=== PATIENT | female | born 1995 | race Caucasian/White ===

== ENCOUNTER 2019-04-15 22:58 | Emergency (ER) | payer OTHER, SELFPAY ==
[2019-04-15 23:00] VITALS: BP 121/68; PULSE 94; RESP 16; TEMP 36.6; O2SAT 100; BMI 21.6
[2019-04-15 23:56] LABS: Mucous, Urine 0 SEEN /hpf (<or=2+)
[2019-04-16 00:19] LABS: Color, Urine Yellow (Yellow); Glucose, Dipstick Normal (Normal); Ketone-Dipstick Negative (Negative); Leukocyte Esterase-Dipstick 500 /ul (Negative); Nitrite-Dipstick Negative (Negative); Occult Blood-Urine 250 /ul (Negative); Protein-Dipstick 100 mg/dl (Negative); Specific Gravity, Urine 1.015 (1.002-1.030); Urine Bilirubin Dipstick Negative (Negative); Urine Clarity Clear (Clear); Urine Urobilinogen Normal (Normal)
[2019-04-16 00:25] LABS: Bacteria 1+ /hpf (None Seen); Red Blood Cells-Urine 5-10 SEEN /hpf (0-5); Squamous Epithelial Cells - UA 5-10 SEEN /hpf (5-10); White Blood Cells 25-50 SEEN /hpf (0-5)
[2019-04-16 00:26] LABS: Internal QC Validated? YES +Cl - CLEAR BKGD; Pregnancy, Urine Negative Negative
--- NOTE | 2019-04-16 00:35 | ED.DCSUM_ITS ---
- ER Visit Summary Date of Service: 04/16/19 Chief Complaint: Dysuria, frequency, urgency. History of Present Illness: The patient is a 24 F who presents with urinary symptoms. These of been present for 3 days. She complains of discomfort with urination as well as frequency and urgency. Since yesterday she has also developed lower right back pain. This is worse with movement or palpation and does feel similar to prior pain with a herniated disc. No fevers nausea vomiting. Physical Examination: Afebrile vitals normal Resting comfortably no distress Heart regular rate and rhythm Lungs clear Abdomen soft, nontender, nondistended Patient has right lumbar paraspinal tenderness no midline tenderness Test Results: UA shows 500 leukocyte esterase, 25-50 WBCs and 1+ bacteria. negative. Emergency Department Course and Treatment: Urinalysis is consistent with cystitis. Her presentation is not consistent with pyelonephritis. She has no fevers nausea vomiting. Her back pain seems to be musculoskeletal in nature. It is unilateral reproducible worse with positions with a history of prior similar symptoms. She will be treated with Bactrim. She was advised on supportive care for her back pain. She understands to return for new or worsening symptoms and was instructed on specific signs and symptoms to monitor for. Treatment Plan: [] Disposition: Discharge Impression: Cystitis Back pain This note was generated with [employer] dictation software. It may contain incorrect words, spelling, and punctuation that were not noted in review of the chart prior to signing ED Disposition - Plan for ED Patient: Referrals: Doris Flaherty, RUDDY-C [Primary Care Provider] -
--- NOTE | 2019-04-16 00:37 | ED.DEP ---
ED Disposition - Plan for ED Patient: Instructions: Urinary Tract Infections in Women Prescriptions: Smz/Tmp Ds [Bactrim Ds] 1 tab PO BID #6 tab Prescription Printed Referrals: Doris Flaherty NP-C [Primary Care Provider] -
[2019-04-16 00:46] VITALS: BP 111/58; PULSE 77; RESP 18; O2SAT 100
== END 2019-04-16 00:48 | disposition home or self-care (01) ==
PROVIDERS: Emergency Provider Emergency Medicine; Family Provider Nurse Practitioner Adult Health; PCP Nurse Practitioner Adult Health
DX: N30.90 Cystitis, unspecified without hematuria (principal); M54.5 Low back pain
CPT/HCPCS: 81001; 81025; 99282

== ENCOUNTER → 2019-11-21 14:03 | Outpatient (CLI) | payer OTHER, SELFPAY ==
[2019-11-21 10:00] VITALS: BMI 21.6
[2019-11-21 16:30] LABS: Chlamydia Trachomatis by PCR Negative (Negative); Neisserai gonorrhoeae by PCR Negative (Negative); Probe Check PASS; Sample Adequacy Control PASS; Specimen Processing Control PASS
[2019-11-26 13:57] LABS: HPV Reflexed? NOT INDICATED
== END ==
PROVIDERS: Nurse Practitioner Women's Health; PCP Student in an Organized Health Care Education/Training Program; Referring Provider Obstetrics & Gynecology; Visit Provider Obstetrics & Gynecology
DX: Z11.3 Encounter for screening for infections with a predominantly sexual mode of transmission (principal); Z12.4 Encounter for screening for malignant neoplasm of cervix
CPT/HCPCS: 87491; 87591; 88175; G0145

== ENCOUNTER → 2023-01-28 | Outpatient (CLI) | payer OTHER, SELFPAY ==
[2023-02-11 22:06] LABS: HPV APTIMA, High Risk Negative (Negative)
[2023-02-12 11:09] LABS: HPV Reflexed? YES, CHARGE PATIENT
== END | disposition home or self-care (01) ==
LOC: LABSPEC 16:40
PROVIDERS: PCP Student in an Organized Health Care Education/Training Program; Referring Provider Obstetrics & Gynecology; Visit Provider Obstetrics & Gynecology
DX: Z12.4 Encounter for screening for malignant neoplasm of cervix (principal)
CPT/HCPCS: 87624; 88175; G0145